=== PATIENT | female | born 1965 | race Hispanic/Latino ===

== ENCOUNTER 2016-11-08 06:35 | Day surgery (SDC) | payer BC, OTHER ==
[2016-11-08] MEDS ORDERED: NACL 0.9% 500 ML 500 ML IV SCH (08:00)
[2016-11-08] MEDS ORDERED: ATROPINE 0.1% (CARDIAC) ONE (09:33)
[2016-11-08] MEDS ORDERED: NITROSTAT SL ONE (09:33)
[2016-11-08 10:40] VITALS: BP 116/65
--- NOTE | 2016-11-09 01:26 | Tilt Table Report ---
INDICATION: Recurrent syncope. ORDERING PHYSICIAN: Ashley Gtz MD DESCRIPTION OF PROCEDURE: After obtaining written consent, the patient was brought to the engineer geophysical laboratory area. The patient was secured to the tilt table test. Her blood pressure prior to tilting was 125/84 with a heart rate of 67, sinus rhythm. The patient was tilted to 85 degrees from horizontal. The patient was maintained for 10 minutes in the upright position. At the end of the 10 minutes, her blood pressure was 134/94 and the heart rate was 86 beats per minute. The patient was subsequently given 0.4 mg sublingual nitroglycerin. Three minutes after nitroglycerin was given, the patient experienced loss of consciousness. She was, however, easily arousable. She maintained sinus rhythm at 104 beats per minute with a blood pressure of 132/86. There was no evidence of a cardioinhibitory response. The patient was easily arousable, therefore she was maintained in the upright position. Her rhythm sustained at sinus. Subsequently, she started having convulsions after which she was noted to have a blood pressure of 86/57, and then she was tilted back to horizontal. Upon tilting her back to horizontal, her blood pressure recovered to 123/89. Again, her telemetry showed a sustained sinus rhythm between 70 and 80 beats per minute. IMPRESSION: 1. This is a negative tilt table test with no evidence of a cardioinhibitory response. Rule out pseudosyncope, pseudoseizures. 2. Follow up with referring nurse infection control. JOB# [id number] HAYLEY/MATTEO
== END 2016-11-08 10:50 | disposition home or self-care (01) ==
LOC: CATHLABREC 06:35
PROVIDERS: ATTEND Internal Medicine
DX: R55 Syncope and collapse (principal)
CPT/HCPCS: 93660; J7040; J0461